=== PATIENT | male | born 1985 | race African-American/Black ===

== ENCOUNTER 2017-12-27 13:21 | Emergency (ER) | payer SELFPAY ==
[2017-12-27] MEDS ORDERED: NORMAL SALINE 1000 ML 1,000 ML IV PRN (14:37)
--- NOTE | 2017-12-27 14:42 | ER Document Report ---
ED General - General Mode of Arrival: Ambulatory Information source: Law Enforcement <TORITOBLAYNE - Last Filed: 12/27/17 23:09> <DEEPALI POND - Last Filed: 12/27/17 23:37> - General Chief Complaint: ETOH Abuse Stated Complaint: ETOH Time Seen by Provider: 12/27/17 14:03 Notes: Patient is a 32 year old male presenting to the emergency department via D due to ETOH abuse. According to D, patient was seen around [facility] and [facility] appearing intoxicated. He states other officers gave the patient a portable breathalyzer test which showed the patient to have a ETOH level of around 0.3. Patient was then transported to correction where he was not accepted due to his ETOH level and sent to the emergency department. At bedside patient does not answer questions therefore all information was obtained from officer. (BLAYNE UGARTE) Past Medical History - General Information source: Law Enforcement, [facility] Records - Social History Smoking Status: Unknown if Ever Smoked Frequency of alcohol use: Heavy Family History: Reviewed & Not Pertinent Patient has suicidal ideation: No Patient has homicidal ideation: No <TORITOBLAYNE - Last Filed: 12/27/17 23:09> Review of Systems - Review of Systems -: Yes ROS unobtainable due to patient's medical condition <TORITO,BLAYNE - Last Filed: 12/27/17 23:09> Physical Exam <BLAYNE UGARTE - Last Filed: 12/27/17 23:09> <DEEPALI POND - Last Filed: 12/27/17 23:37> - Notes Notes: GENERAL: Sleeping, arousable. Mumbles, does not follow commands. No acute distress. HEAD: Normocephalic, atraumatic. EYES: Pupils equal, round, and reactive to light. Extraocular movements intact. ENT: Oral mucosa moist, tongue midline. NECK: Full range of motion. Supple. Trachea midline. LUNGS: Clear to auscultation bilaterally, no wheezes, rales, or rhonchi. No respiratory distress. HEART: Regular rate and rhythm. No murmurs, gallops, or rubs. EXTREMITIES: Moves all 4 extremities spontaneously. No edema, radial and dorsalis pedis pulses 2/4 bilaterally. No cyanosis. NEUROLOGICAL: Sleeping, arousable, does not follow commands, mumbles. Withdraws from noxious stimuli. SKIN: Warm, dry, normal turgor. No rashes or lesions noted. (BLAYNE UGARTE) Course - Laboratory Result Diagrams: 12/27/17 14:35 12/27/17 14:35 <BLAYNE UGARTE - Last Filed: 12/27/17 23:09> - Laboratory Result Diagrams: 12/27/17 14:35 12/27/17 14:35 - EKG Interpretation by Me EKG shows normal: Sinus rhythm Rate: Normal Rhythm: NSR - Normal axis and intervals <DEEPALI POND - Last Filed: 12/27/17 23:37> - Re-evaluation Re-evalutation: 12/27/17 18:32 Patient shows signs of dehydration with elevated sodium and osmolarity. Otherwise patient's labs including kidney function within normal limits. Patient was given 2 L of fluids during stay in emergency department became awake alert oriented x4. No pain. He states that he had a lot to drink this morning but did not try to hurt himself is not suicidal and did not drink anything other than Phyllis Ice. Discussed case with Dr. Tomlinson as a nursing care attendant consult regarding Na and OSM. As patient is asymptomatic and all other labs are within normal limits felt appropriate to release patient to police at this time and inpatient admittance was not necessary. I did discuss with patient need to stay hydrated. (DEEPALI POND) - Laboratory Laboratory results interpreted by me: 12/27/17 12/27/17 14:35 14:35 Sodium 151.0 H Chloride 109 H Serum Osmolality 361 H Salicylates < 1.0 L Acetaminophen < 10 L Discharge <BLAYNE UGARTE - Last Filed: 12/27/17 23:09> <DEEPALI POND - Last Filed: 12/27/17 23:37> - Discharge Clinical Impression: Dehydration Alcohol intoxication Qualifiers: Complication of substance-induced condition: uncomplicated Qualified Code(s): F10.920 - Alcohol use, unspecified with intoxication, uncomplicated Condition: Good Disposition: OTHER Instructions: Dehydration ([facility]) Scribe Attestation: 12/27/17 23:37 I personally performed the services described in the documentation, reviewed and edited the documentation which was dictated to the scribe in my presence, and it accurately records my words and actions. (DEEPALI POND) Scribe Documentation - Scribe Written by Scribe:: Richa Bueno, 12/27/2017 14:49 acting as scribe for :: Milo <BLAYNE UGARTE - Last Filed: 12/27/17 23:09>
[2017-12-27 14:55] LABS: ABSOLUTE EOSINOPHILS # (AUTO) 0.1 10^3/uL (0.0-0.6); ABSOLUTE MONOCYTES (AUTO) 0.3 10^3/uL (0.1-1.4); BASOPHILS % (AUTO) 0.6 % (0-2); EOSINOPHILS % (AUTO) 1.3 % (0-6); HEMATOCRIT 43.3 % (37.9-51.0); HEMOGLOBIN 15.1 g/dL (13.5-17.0); LYMPHOCYTES % (AUTO) 18.7 % (13-45); MEAN CORPUSCULAR HEMOGLOBIN 32.9 pg (27.0-33.4); MEAN CORPUSCULAR HGB CONC 34.9 g/dL (32.0-36.0); MEAN CORPUSCULAR VOLUME 94 fl (80-97); MONOCYTES % (AUTO) 5.8 % (3-13); PLATELET COUNT 228 10^3/uL (150-450); RED BLOOD COUNT 4.59 10^6/uL (4.35-5.55); RED CELL DISTRIBUTION WIDTH 13.1 % (11.5-14.0); SEGMENTED NEUTROPHILS % (AUTO) 73.6 % (42-78); TOTAL CELLS COUNTED % (AUTO) 100 %; WHITE BLOOD COUNT 5.4 10^3/uL (4.0-10.5)
[2017-12-27 15:22] LABS: ALANINE AMINOTRANSFERASE 22 U/L (21-72); ALBUMIN 4.9 g/dL (3.5-5.0); ALKALINE PHOSPHATASE 49 U/L (38-126); ANION GAP 19 (5-19); ASPARTATE AMINO TRANSFERASE 25 U/L (17-59); BILIRUBIN,DIRECT 0.3 mg/dL (0.0-0.4); BLOOD UREA NITROGEN 9 mg/dL (7-20); CALCIUM 8.9 mg/dL (8.4-10.2); CARBON DIOXIDE 23 mmol/L (22-30); CHLORIDE 109 mmol/L (98-107); CREATINE KINASE 127 U/L (55-170); GLUCOSE 87 mg/dL (75-110); POTASSIUM 4.6 mmol/L (3.6-5.0); TOTAL PROTEIN 7.6 g/dL (6.3-8.2)
[2017-12-27 15:24] LABS: ACETAMINOPHEN < 10 ug/mL (10-30); SALICYLATE < 1.0 mg/dL (2.0-20.0)
--- NOTE | 2017-12-28 00:09 | EKG REPORT ---
SEVERITY:- NORMAL ECG - SINUS RHYTHM : Confirmed by: Trina Morris MD 28-Dec-2017 00:09:23
== END 2017-12-27 18:35 | disposition other institution (70) ==
LOC: ER 13:21
DX: F10.120 Alcohol abuse with intoxication, uncomplicated (principal); E86.0 Dehydration
CPT/HCPCS: 99284; 96360; 36415; 82553; 80307 ×3; 82550; 83735; 83930; 85025; 80053; 93005; 93010; J7030